=== PATIENT | female | born 1990 | race Caucasian/White ===

== ENCOUNTER 2025-05-06 09:59 | Emergency (ER) | payer OTHER, SELFPAY ==
--- NOTE | 2025-05-06 11:23 | ED.GENMED ---
History of Present Illness
General
Chief Complaint: Anxiety
Source: patient
Exam Limitations: none
Time Seen by Provider: 05/06/25 11:07
Nursing documentation reviewed up to this point in time: agreed with
History of Present Illness
History of Present Illness:
Patient is a 35-year-old female who presents to the emergency department with concerns of intermittent chest tightness since yesterday. She states that on her way to work yesterday she experienced acute onset tightness sensation which felt like
anxiety however was associated with tingling in her hands and feet. She thought that she may be having a panic attack. Symptoms resolved however she has felt a lingering underlying 'anxious feeling' since yesterday.
She states that it feels different than her prior panic attacks and came to the emergency department to rule out a cardiac etiology.
She denies any associated shortness of breath, dizziness or lightheadedness. No severe back pain, diaphoresis.
Patient is not on any exogenous hormone use. No recent travel or recent surgeries. No pain or swelling in lower extremities.
Her family does have a history of cardiac disease.
Patient denies any SI or HI.
Review of Systems
Review of Systems
Allergies reviewed?: Yes
All Other Systems: ROS reviewed and negative except as documented in HPI and ROS
Phy Exam
Physical Exam
Physical Exam:
Vitals: Patient's vital signs are stable. Afebrile
General: Patient is well appearing, no acute distress. Nontoxic-appearing
Skin: Warm and dry, no rashes or lesions
Head: Normocephalic, atraumatic
Eyes: Sclera nonicteric.
Throat: Protecting airway
Neck: Normal ROM, no cervical spine tenderness, no meningismus
Cardiac: Regular rate and rhythm, no murmurs. No reproducible chest wall tenderness
Pulm: Normal respiratory effort. Lungs clear bilaterally
Abdomen: No abdominal tenderness.
Extremities: No evidence of cyanosis or edema. Negative Homans' sign bilaterally
Neuro: AAOx3. Grossly intact.
Psychiatric: Mildly anxious.
Course
Orders/Labs/Results
Orders:
Orders
05/06/25 11:20
Electrocardiogram (*1) Urgent
Reason for Study: Chest Pain
EKG- Treatment ONCE
05/06/25 11:29
Complete Blood Count/With Diff Urgent
Comprehensive Metabolic Panel Urgent
Magnesium Urgent
TSH Reflex To Free T4 Urgent
Troponin I Urgent
05/06/25 13:40
Troponin I Urgent
05/06/25 14:30
Electrocardiogram (*1) Urgent
Reason for Study: Chest Pain
EKG- Treatment ONCE
Abnormal Lab Results
05/06/25
11:29
RBC 3.93 L 10^6/uL
(4.20-5.40)
MCH 32.3 H pg
(27.0-31.0)
Glucose 106 H mg/dl
(70-99)
Alkaline Phosphatase 37 L U/L
(38-126)
05/06/25 11:29
05/06/25 11:29
Vital Signs
Initial and Last Documented VS:
Initial Vital Signs
Temp
98.0 F
05/06/25 10:00
Last Documented Vital Signs
Temp Pulse Resp BP Pulse Ox
98.2 F 68 16 115/74 100
05/06/25 12:01 05/06/25 14:36 05/06/25 14:36 05/06/25 14:36 05/06/25 20:24
MDM/Problems Addressed
Differential Diagnosis Includes:
Not limited to: Anxiety/panic attack, electrolyte abnormality, hyperthyroidism, cardiac arrhythmia, less likely acute coronary syndrome, etc.
MDM/Problems Addressed:
35 year-old female presents with intermittent episodes of chest tightness with tingling in hands and feet, similar to prior panic attacks. Occurring intermittently yesterday and today. No clear exertional component. No associated shortness of
breath, nausea, lightheadedness, or diaphoresis. Patient with concern for underlying cardiac process.
Vitals as above. On exam, patient does appear somewhat anxious, however in no distress. Heart regular rate and rhythm. Lungs are clear bilaterally. No clinical evidence of DVT on exam.
Overall impression is likely panic attack. She has no risk factors for PE with a PERC of zero. Description of symptoms do not seem like an anginal equivalent and feel acute cardiac emergent process/ ACS is very unlikely however will screen with
cardiac enzymes. Will check basic labs and reassess.
Update: Labs without any clinically significant abnormalities. Serial troponins negative times two. EKG without any acute ischemia. She has remained stable and well appearing in ED.
Offered crisis evaluation however patient declines. She is not suicidal or homicidal do not have any current safety concerns.
Feel stable for discharge home with closer precautions and primary care follow-up.
Chronic conditions affecting care:
N/A
Acute Exacerbation and/or Progression of Chronic Illness:
N/A
*Pulse Oximetry
SaO2: 100
Oxygen Mode of Delivery: Room air
Patient hypoxic: no
*EKG
Interpreted by ED Provider?: Yes
EKG Intrepretation Date: 05/06/25
Interpretation: normal
Comparison EKG: no changes
Heart Rate: 60
Rate: normal
Rhythm: sinus
[place]: normal axis
Interval: normal QT interval
QRS Pattern: normal QRS
Ischemia: no ischemia
*Customer Engagement Specialist Interpretation
Rate: Customer Engagement Specialist- N/A
*Critical Care Note
Total Time (30-74mins, 75-104mins- exclusive of procedures): Not Applicable
ED Attending Note
-
Portions of this chart may have been created with voice recognition software.� Occasional wrong word or��sound alike� substitutions may have occurred due to the inherent limitations of voice recognition software.
Discharge Plan
Departure
Patient Disposition: Home (Routine Discharge)
Date of Disposition: 05/06/25
Time of Disposition: 14:45
Patient with high blood pressure during this ER visit?: No
Discharge Problem:
Anxiety, Tingling in extremities
Instructions: Anxiety, Adult (DC)
Prescriptions:
No Action
No Current Medications
0
Referrals:
UNKNOWN - PT DOES,NOT KNOW [Family Provider]
Activity Restrictions/Additional Instructions:
RETURN TO THE EMERGENCY DEPARTMENT WITH ANY CHEST PAIN OR SHORTNESS OF BREATH, DIFFICULTY BREATHING, THOUGHTS OF HARMING YOURSELF OR OTHERS, WEAKNESS OR NUMBNESS IN EXTREMITIES, WORSENING IN CURRENT SYMPTOMS, OR ANY OTHER CONCERNS
- As discussed your lab work in the emergency department showed no acute abnormalities.
- Please stay well-hydrated.
- I would recommend establishing care with a primary care physician for further evaluation/management.
Monitor your symptoms closely and return to the emergency department with any acute worsening/new symptoms or
Interventions
Interventions:
*Risk Screen - Suicide Last Done: 05/06/25 10:00
*General Assessment Last Done: 05/06/25 10:00
*Neglect/Abuse Screening Last Done: 05/06/25 10:00
*ED- Fall Risk Assessment Last Done: 05/06/25 11:22
*Nursing Disposition Last Done: 05/06/25 14:36
ED-Psychological Assessment Last Done: 05/06/25 11:22
Discharge Date and Time
Discharge Date/Time: 05/06/25 14:53
Print Language: WELSH
[2025-05-06 11:53] LABS: Hematocrit 38.5 % (37.0-47.0); Hemoglobin 12.7 g/dL (12.0-16.0); Mean Corp Hgb Conc. 33.0 g/dL (33.0-37.0); Mean Corpuscular Volume 98.0 fL (81.0-99.0); Nucleated Red Blood Cells % 0 %; Platelet Count 225 10^3/uL (130-400); Red Cell Dist. Width 11.6 % (11.5-14.5)
[2025-05-06 11:58] LABS: ALT (SGPT) 12 U/L (0-35); AST (SGOT) 15 U/L (14-36); Albumin 4.5 g/dl (3.5-5.0); Alkaline Phosphatase 37 U/L (38-126); Blood Urea Nitrogen 14 mg/dl (7-17); Calcium 9.2 mg/dl (8.4-10.2); Carbon Dioxide 28 mmol/L (22-30); Chloride 106 mmol/L (98-107); Glucose 106 mg/dl (70-99); Magnesium 1.8 mg/dl (1.6-2.3); Potassium 4.2 mmol/L (3.5-5.1); Sodium 140 mmol/L (135-145); Total Protein 7.3 g/dl (6.3-8.2); eGFR > 60.00
[2025-05-06 12:01] VITALS: BP 115/84
[2025-05-06 12:08] LABS: Troponin I 0.019 ng/ml
[2025-05-06 14:00] VITALS: BP 122/76
[2025-05-06 14:22] LABS: Troponin I 0.013 ng/ml
[2025-05-06 14:36] VITALS: BP 115/74
== END 2025-05-06 14:53 | disposition home or self-care (01) ==
LOC: EMR 09:59
PROVIDERS: Physician Assistant; EMERGENCY PHYSICIAN Student in an Organized Health Care Education/Training Program
DX: F41.9 Anxiety disorder, unspecified (principal); R20.2 Paresthesia of skin
CPT/HCPCS: 99284; 80053; 83735; 84443; 84484; 85025; 93005